=== PATIENT | female | born 1975 | race Caucasian/White ===

== ENCOUNTER 2019-01-28 07:01 | Day surgery (SDC) | payer OTHER ==
[2019-01-15 13:55] VITALS: BMI 21.9
--- NOTE | 2019-01-22 09:11 | HP ---
Admitting History and Physical - Primary Care Physician PCP: Jamel Montoya - Admission Chief Complaint: Right breast atypia/LCIS History of Present Illness: 43 year old premenapausal female who was found to have calcifications in the 10:00 right upper outer breast on screening mammogram 11/09/2018. 11/09/2018 Stereotactic core biopsy right breast 10:00 Pathology showed associated Atypical lobular hyperplasia and lobular intraepithelial neoplasia garde 1. She had breast augmentation with saline implants 2000. History Source: Patient Limitations to Obtaining History: No Limitations - Past Medical History ...LMP Comment: 2012- HAS HORMONAL IUD ...: No - Past Surgical History Past Surgical History: Yes: Appendectomy, Additional Past Surgical History: Breast saline implant augmentation 2000basal cell excision knee surgery - Smoking History Smoking history: Never smoked Have you smoked in the past 12 months: No - Alcohol/Substance Use Hx Alcohol Use: Yes (OCCASIONALLY) Home Medications - Allergies Allergies/Adverse Reactions: Allergies Allergy/AdvReac Type Severity Reaction Status Date / Time No Known Allergies Allergy Verified 01/15/19 13:44 - Home Medications Home Medications: Ambulatory Orders Multivitamins [Tab-A-Vit -] 1 tab PO DAILY 01/15/19 Family Disease History - Family Disease History Family Disease History: CA: Grandparent (lung ca 62), Mother (lung ca 75) Physical Examination Constitutional: Yes: No Distress Breast(s): Yes: Other (C cup breasts with bilateral subpectoral saline implants. Some rsolving hemaroma and post biopsy changes right 11:00 region where she has stereotctic core biopsy no masses or adenopathy palpated.) Problem List - Problems (1) Atypical lobular hyperplasia of right breast Code(s): N60.91 - UNSPECIFIED BENIGN MAMMARY DYSPLASIA OF RIGHT BREAST (2) Lobular carcinoma in situ (LCIS) of right breast Code(s): D05.01 - LOBULAR CARCINOMA IN SITU OF RIGHT BREAST Assessment/Plan Right breast wide excision with mammogram needle localization
[2019-01-28] MEDS ORDERED: KETOROLAC TROMETHAMINE 30 MG/1 ML VIAL IVPUSH PRN (09:48)
[2019-01-28] MEDS ORDERED: ONDANSETRON 4 MG/2 ML VIAL IVPUSH PRN ×2 (09:48→11:26)
[2019-01-28] MEDS ORDERED: DEXTROSE 5%-0.45% SALINE 1,000 ML IV SCH (10:00)
[2019-01-28] MEDS ORDERED: PROPOFOL 20 ML ONE ×2 (10:06)
[2019-01-28] MEDS ORDERED: SUCCINYLCHOLINE CHLORIDE 200 MG/10 ML SYRINGE ONE (10:06)
[2019-01-28] MEDS ORDERED: DEXAMETHASONE SOD PHOSPHATE 4 MG/1 ML VIAL ONE (10:06)
[2019-01-28] MEDS ORDERED: MIDAZOLAM HCL 2 MG/2 ML SINGLE DOSE VIAL ONE (10:07)
[2019-01-28] MEDS ORDERED: BUPIVACAINE HCL/PF 2.5 MG/ML - 30 ML VIAL IJ ONE (10:18)
[2019-01-28] MEDS ORDERED: LIDOCAINE HCL 1% PRESERVATIVE FREE - 30ML VIAL ONE (10:18)
[2019-01-28] MEDS ORDERED: ceFAZolin SODIUM 1 GM VIAL ONE (10:25)
[2019-01-28] MEDS ORDERED: LIDOCAINE HCL 1%, 10 MG/ML (50 mL VIAL) IJ ONE (10:31)
[2019-01-28] MEDS ORDERED: BUPIVACAINE HCL/PF 0.25% (2.5MG/ML) 10 ML VIAL IJ ONE (11:08)
[2019-01-28] MEDS ORDERED: oxyCODONE HCL 5 MG TABLET PO PRN ×2 (11:26)
[2019-01-28] MEDS ORDERED: PROMETHAZINE HCL 25 MG/1 ML VIAL IVPUSH PRN (11:26)
--- NOTE | 2019-01-28 11:57 | OP ---
DATE OF OPERATION: 01/28/2019 PREOPERATIVE DIAGNOSIS: Right breast atypical lobular hyperplasia with questionable intraductal lobular neoplasia. POSTOPERATIVE DIAGNOSIS: Right breast atypical lobular hyperplasia with questionable intraductal lobular neoplasia. PROCEDURE: Right breast wide excision with mammographic needle localization. ANESTHESIA: Local with IV sedation. PRIMARY SURGEON: Roxanne Montoya MD CENTRAL SERVICES TECH: KENYATTA Scales ANESTHESIOLOGIST: Roosevelt Brown MD COMPLICATIONS: There were no complications. INDICATIONS: Briefly the patient is a 43-year-old premenopausal female, descent, with no family history of breast or ovarian cancer. Her mother and maternal grandfather had lung cancer. The patient has a history of saline augmentation implants placed in 2000. She was found to have some calcifications in the upper inner aspect of the right breast and underwent a stereotactic core biopsy which showed some atypical lobular hyperplasia as well as intraepithelial lobular neoplasia. Slide review only showed atypical lobular hyperplasia and she underwent an MRI in December 2018 which was negative. She was advised in undergoing wide excision of this atypia with questionable intraepithelial neoplasia. She was brought in for the procedure on January 28, 2019, and underwent a mammographic needle localization with a clip just towards the superficial upper outer aspect of the right breast. Site verification was made, informed consent was obtained and she was brought into the operating room. DESCRIPTION OF PROCEDURE: The patient was laid on the OR table in the supine position. Venodynes were placed on the lower extremities. She received 1 g of Ancef prior to incision. She underwent IV sedation and the right breast was sterilely prepped and draped in the usual fashion with the wire prepped in the field. Once the patient was properly anesthetized and she was sterilely prepped and draped a timeout was performed. A periareolar incision was marked out and made on the superior aspect of the right breast nipple-areolar complex. The needle localization wire was then tracked through the breast and the breast tissue superficially just underneath the skin around the needle localization wire was removed with the wire within the specimen. It was oriented with a long lateral, short superior suture. A specimen radiograph, initial, did not show the clip in question. We did find the clip just inferior to the needle localization wire superficially and that area was removed and both specimens were sent to Pathology in formalin, 1 with the clip and 1 without the clip. At this point hemostasis was achieved. The breast parenchyma was then reapproximated using 2-0 plain suture. The periareolar incision was then closed using interrupted 3-0 deep dermal Vicryl suture and a running 4-0 subcuticular Biosyn suture. Mastisol, Steri-Strips were applied over the wound with a compressive dressing placed over this. She was placed in a surgical bra postoperatively. The patient tolerated the procedure well without difficulty and will be recovered and then discharged home the same day once discharge criteria are met. She is to follow up in the office in 1 week for a formal wound pathology check. All sponge and needle counts were correct at the end of the case and the estimated blood loss was minimal. ROXANNE MONTOYA M.D. [id number]
[2019-01-28 12:11] VITALS: TEMP 97.9
[2019-01-28 13:06] VITALS: BP 100/62; PULSE 68
--- NOTE | 2019-02-05 14:53 | PATH ---
Surgical Pathology Report Patient Name: JUSTIN JOHNSON [facility] [place]. Rec. #: [id number] /Age/Gender: 1975 (Age: 43) / F Account: [id number] Location: [facility] AMBULATORY Taken: 01/28/2019 Received: 01/28/2019 Reported: 02/05/2019 Physicians: Jamel Montoya M.D. Specimen(s) Received RIGHT BREAST WIDE EXCISION Clinical History Atypical lobular hyperplasia and ? intraductal lobular neoplasia Final Diagnosis BREAST, RIGHT, WIDE EXCISION: BENIGN BREAST TISSUE SHOWING FOCAL COLUMNAR CELL CHANGE AND STROMAL FIBROSIS. NO RESIDUAL ATYPIA/ ATYPICAL LOBULAR HYPERPLASIA (ALH) IS IDENTIFIED. FOCAL CHANGES SUGGESTIVE OF PRIOR BIOPSY ARE NOTED. Electronically Signed Amrita Gauthier M.D. Gross Description Received in formalin, labeled "right breast, wide excision" is a 3.3 x 3 x 1.2 cm portion of fibrofatty tissue with a long suture designating the lateral margin and a short suture indicating the superior margin, per the surgeon. The specimen is inked as follows: Superior-blue, inferior-green, anterior-red, deep-black, lateral-yellow, medial-orange. Sectioning reveals dense, fibrous tissue with a central, hemorrhagic focus. The specimen is entirely submitted in six cassettes as follows: 2-2-[id number] sectioned specimen with superior, inferior, medial and lateral margins; 5-anterior margin; 6-deep margin. Time to formalin fixation: 13 minutes Toto formalin fixation time: Approximately 32 hours AE/01/29/2019 ebram/01/29/2019
== END 2019-01-28 12:55 | disposition home or self-care (01) ==
LOC: FASU 07:01
PROVIDERS: ATTEND Surgery Surgical Oncology
PROC: 0HBT0ZX Excision of Right Breast, Open Approach, Diagnostic (ICD-10-PCS; principal; 2019-01-28 10:31)
DX: N60.31 Fibrosclerosis of right breast (principal); N60.91 Unspecified benign mammary dysplasia of right breast
CPT/HCPCS: 19281; 84703; 88307-TC; 94760